=== PATIENT | female | born 1935 | race Hispanic/Latino ===

== ENCOUNTER 2016-09-24 09:17 | Day surgery (SDC) | payer MEDICARE ==
[2016-09-23 17:43] LABS: Hematocrit 24.2 % (30.3-42.9); Hemoglobin 8.3 gm/dl (10.1-14.3)
[2016-09-24] MEDS ORDERED: NACL 0.9% 500 ML 500 ML ONE (09:32)
[2016-09-24 10:14] LABS: Hematocrit 25.1 % (30.3-42.9); Hemoglobin 8.6 gm/dl (10.1-14.3)
[2016-09-24] MEDS ORDERED: BENADRYL PO ONE (10:14)
[2016-09-24] MEDS ORDERED: TYLENOL PO ONE (10:14)
[2016-09-24] MEDS ORDERED: NACL 0.9% 500 ML 500 ML IV SCH (11:00)
[2016-09-24] MEDS ORDERED: LASIX ONE (15:09)
[2016-09-24] MEDS ORDERED: LASIX IV ONE (15:30)
[2016-09-24 15:46] VITALS: BP 141/50
== END 2016-09-24 15:30 | disposition home or self-care (01) ==
LOC: OPU 09:17
DX: D64.9 Anemia, unspecified (principal)
CPT/HCPCS: 36415; 36430; 85014; 85018; 86850; 86900; 86901; 96374; J1720; J1940; J7040; P9040

== ENCOUNTER 2016-12-05 08:18 | Outpatient (CLI) | payer MEDICARE ==
[2016-12-05] MEDS ORDERED: XYLOCAINE TOPICAL 4% TP ONE (09:17)
== END 2016-12-05 08:19 | disposition home or self-care (01) ==
LOC: WOUND 08:18
PROVIDERS: ATTEND Nurse Practitioner
DX: I87.332 Chronic venous hypertension (idiopathic) with ulcer and inflammation of left lower extremity (principal); L97.821 Non-pressure chronic ulcer of other part of left lower leg limited to breakdown of skin; I73.9 Peripheral vascular disease, unspecified; J44.9 Chronic obstructive pulmonary disease, unspecified; Z87.891 Personal history of nicotine dependence; Z72.89 Other problems related to lifestyle
CPT/HCPCS: 11042; G0463

== ENCOUNTER 2016-12-12 09:18 | Outpatient (CLI) | payer MEDICARE ==
[2016-12-12] MEDS ORDERED: XYLOCAINE TOPICAL 4% TP ONE (09:31)
== END 2016-12-12 09:19 | disposition home or self-care (01) ==
LOC: WOUND 09:18
PROVIDERS: ATTEND Nurse Practitioner
DX: I87.332 Chronic venous hypertension (idiopathic) with ulcer and inflammation of left lower extremity (principal); L97.821 Non-pressure chronic ulcer of other part of left lower leg limited to breakdown of skin; I70.203 Unspecified atherosclerosis of native arteries of extremities, bilateral legs; I73.9 Peripheral vascular disease, unspecified; J44.9 Chronic obstructive pulmonary disease, unspecified; K21.9 Gastro-esophageal reflux disease without esophagitis; Z98.62 Peripheral vascular angioplasty status; Z87.891 Personal history of nicotine dependence; Z72.89 Other problems related to lifestyle